=== PATIENT | male | born 1970 | race Caucasian/White ===

== ENCOUNTER 2019-03-08 21:03 | Emergency (ER) | payer OTHER ==
[~2019-03-08] VITALS: Ht 185.4 cm; Wt 122.0 kg
[2019-03-08] MEDS ORDERED: ASPIR 8181 MG PO (21:15)
[2019-03-08] MEDS ORDERED: MEDROLPACK PO (22:55)
== END 2019-03-08 23:03 | disposition home or self-care (01) ==
LOC: ER 21:03
DX: L50.8 Other urticaria (principal)